=== PATIENT | male | born 1955 | race Caucasian/White ===

== ENCOUNTER 2020-05-04 10:14 | Emergency (ER) | payer BC ==
[~2020-05-04] VITALS: Ht 177.8 cm; Wt 81.8 kg
[2020-05-04 11:20] LABS: HEMATOCRIT 44.5 % (39.0-50.0); HEMOGLOBIN 14.3 g/dl (14.0-18.0); IMMATURE GRANULOCYTES 0.3 % (0.0-5.0); MEAN CELL VOLUME 88.1 fL CALC (80.0-100.0); MEAN CORPUSCULAR HGB 28.3 pG CALC (26.0-32.0); MEAN CORPUSCULAR HGB CONC 32.1 g/dL CAL (32.0-36.0); NEUT# 4.2 thou/uL (1.82-7.42); RED BLOOD COUNT 5.05 mill/uL (4.70-6.10); RED CELL DISTRI WIDTH 12.9 % (11.5-15.5)
[2020-05-04 11:32] LABS: ANION GAP 12 (6-22 (CALC)); BUN 15 mg/dL (8-23); BUN/CREATININE RATIO 13 (12-20 (CALC)); CARBON DIOXIDE 29 mmol/l (22-30); CHLORIDE 100 mmol/l (95-108); CREATININE 1.2 mg/dL (0.7-1.3); GFR > 60 ML/MIN (>=60 (CALC)); GFR FOR AFR.AMER. > 60 ML/MIN (>=60 (CALC)); POTASSIUM 4.3 mmol/l (3.5-5.1); SODIUM 137 mmol/l (137-146)
[2020-05-04] MEDS ORDERED: ANUCORT-HC25 M1 RE (12:27)
[2020-05-04 12:31] VITALS: BP 128/72
== END 2020-05-04 12:45 | disposition home or self-care (01) | DRG 395 ==
LOC: ED 10:14
PROVIDERS: Family Medicine
DX: K64.8 Other hemorrhoids (principal); Z90.5 Acquired absence of kidney
CPT/HCPCS: Q9967

== ENCOUNTER 2024-05-22 20:24 | Emergency (ER) | payer MEDICARE, BC ==
[~2024-05-22] VITALS: Ht 177.8 cm; Wt 81.6 kg
[~2024-05-22 20:24] MED LIST: ANUCORT-HC25 M1 RE
[2024-05-22] MEDS ORDERED: FLUORESCEIN SODIUM 1 MG EA OD ONE (21:25)
[2024-05-22] MEDS ORDERED: TETRACAINE HCL 0.5 %/4 ML SOL OD ONE (21:25)
[2024-05-22] MEDS ORDERED: POLYMYXIN B SUL1 SOL OS (21:57)
[2024-05-22] MEDS ORDERED: ERYTHROMYCIN OPTHALMIC 5 MG/GM TUBE OS ONE (22:00)
[2024-05-22] MEDS ORDERED: HYDROcodone/Acetaminophen 1 COMBO TAB PO ONE (22:00)
[2024-05-22] MEDS ORDERED: ONDANSETRON 4 MG/TAB ODT SL ONE (22:00)
[2024-05-22 22:40] VITALS: BP 138/73
== END 2024-05-22 22:40 | disposition home or self-care (01) ==
LOC: ED 20:24
DX: H16.002 Unspecified corneal ulcer, left eye (principal)